=== PATIENT | female | born 1940 | race Caucasian/White ===

== ENCOUNTER → 2016-09-21 | Outpatient (CLI) | payer MEDICARE, OTHER ==
--- NOTE | 2016-09-21 10:54 | RADRPT ---
PROCEDURE: Carotid ultrasound CLINICAL INDICATION: Decreased vision, carotid bruits TECHNIQUE: Jang scale, color doppler, spectral doppler ultrasound of the bilateral carotid and leena tebral arteries. This study indirectly references the measurement of the distal ICA diameter as the denominator for s tenosis measurement. Validated velocity measurements with angiographic measurements, velocity criter ia are extrapolated from diameter data as defined by: *Cartoid artery stenosis: jang-scale and Doppl er US diagnosis. Society of Radiologists in Ultrasound Consensus Conference. Radiology 2003; 229: 34 0-346. SRU Consensus Conference Criteria for the Diagnosis of Carotid Artery Stenosis* Degree of Stenosis, % ICA PSV, cm/sec Plaque Estimate, % ICA/CCA PSV Ratio Normal <125 None <2.0 <50 <125 <50 <2.0 50 69 125-230 >50 2.0-4.0 >70 but less than near occlusion >230 >50 <4.0 Near occlusion High, low, or undetectable Visible Variable Total occlusion Undetectable Visible, no detectable lumen Not applicable COMPARISON: No prior studies are available for comparison. FINDINGS: Location Right CCA73 cm/sec Prox ICA 35 cm/sec Mid ICA36 cm/sec Dist ICA54 cm/sec ECA48 cm/sec Left CCA56 cm/sec Prox ICA 181 cm/sec Mid QEP035 cm/sec Dist ICA58 cm/sec LZX501 cm/sec Plaque burden: Calcified plaque present within the right internal carotid artery origin without flow acceleration. Calcified plaque at the origin of the left internal carotid artery produces flow acc eleration. Antegrade flow is seen within the vertebral arteries bilaterally. IMPRESSION: Calcified plaque at the origin of the right internal carotid artery does not produce significant tyler w acceleration compatible with less than 50% stenosis. Calcified plaque at the origin of the left internal carotid artery produces flow acceleration sugges tive of 50 - 69% stenosis. RPTAT: AADD .Ronnie Miranda MD, Date Time Electronically viewed and signed by .Ronnie Miranda MD, on 09/21/2016 10:53 .B/
== END | disposition home or self-care (01) ==
LOC: VAS 09:29
PROVIDERS: ATTEND Internal Medicine
DX: H54.7 Unspecified visual loss (principal); I65.22 Occlusion and stenosis of left carotid artery; I65.21 Occlusion and stenosis of right carotid artery
CPT/HCPCS: 93880